=== PATIENT | female | born 1955 | race African-American/Black ===

== ENCOUNTER 2016-11-28 12:09 | Emergency (ER) | payer OTHER ==
--- NOTE | ~2016-11-28 | CR20 ---
[facility]. [facility] A Service of [facility] & [facility] - [place] RADIOLOGY TEXT RESULTS PATIENT: MERCEDES GODFREY LOCATION: SED : 55 UNIT #: [id number] AGE: [address]: CARRIE ADHIKARI SEX: F ORDER DR: [id number] [address] [address] [id number] MR#: [id number] Acc #: [id number] NAME: MERCEDES GODFREY : 1955 SEX: F STUDY DATE/TIME: 11/28/2016 12:22 UNIT: SED ROOM: STUDY DESCRIPTION: CR Ankle Min 3 Views Lt Attending Physician: Carrie Adhikari A.P.R.N. Ordering Physician: Carrie Adhikari A.P.R.N. Primary Care Physician: [facility] MEDICAL IMAGING REPORT This report is preliminary unless electronic signature is present. EXAM Three views left ankle INDICATIONS Pain along the lateral side of the ankle. This started yesterday when the patient woke up. She has no known injury. FINDINGS No acute fracture or subluxation of the left ankle is identified. No focal soft tissue swelling is seen and there is no ankle effusion. There is enthesopathic change seen at the insertion of the Achilles tendon. IMPRESSION Negative Dictated by... Erica Blas M.D. THIS IS AN ELECTRONICALLY VERIFIED REPORT Erica Blas M.D. at 11/28/2016 5:19 PM AFF/cmm TD: 11/28/2016 13:01 JOB #: [id number] MEDICAL IMAGING REPORT Page 1 of 1
[~2016-11-28 12:09] MED LIST: APRESOLINE; HCTZ; IRON1 TAB; NORVASC10 MG
[2017-03-05] MEDS ORDERED: GLUCOSAMINE500 M1 (18:55)
[2017-03-05] MEDS ORDERED: CALCIUM500 M1 (18:55)
[2017-03-05] MEDS ORDERED: MULTIVITAMINS1 EAC3 (18:56)
[2017-03-05] MEDS ORDERED: STOOL SOFTENER50 MG (18:56)
[2017-03-05] MEDS ORDERED: K-DUR20 ME1 DOB (21:30)
== END 2016-11-28 13:10 | disposition home or self-care (01) ==
LOC: SED 12:09
DX: M25.572 Pain in left ankle and joints of left foot (principal); I10 Essential (primary) hypertension; Z91.013 Allergy to seafood
CPT/HCPCS: 29405; 73610; 96372; 99283; J1885